=== PATIENT | male | born 1990 | race Caucasian/White ===

== ENCOUNTER 2020-02-08 04:31 | Emergency (ER) | payer OTHER, SELFPAY ==
[~2020-02-08] VITALS: Ht 172.7 cm; Wt 272.2 kg
[2020-02-08 04:33] VITALS: Ht 172.7 cm; Wt 272.2 kg
[2020-02-08 06:13] VITALS: BP 123/57
== END 2020-02-08 06:12 | disposition home or self-care (01) ==
LOC: ED 04:31
DX: J45.909 Unspecified asthma, uncomplicated (principal); L03.116 Cellulitis of left lower limb; E66.01 Morbid (severe) obesity due to excess calories; Z88.0 Allergy status to penicillin; Z88.1 Allergy status to other antibiotic agents; Z20.828 Contact with and (suspected) exposure to other viral communicable diseases
CPT/HCPCS: U0003